=== PATIENT | female | born 1970 | race African-American/Black ===

== ENCOUNTER 2018-05-31 12:31 | Inpatient (IN) | payer OTHER, MEDICAID ==
[~2018-05-31] VITALS: Ht 142.2 cm; Wt 74.6 kg
[~2018-05-31 12:31] MED LIST: FAM20T PO; IBUP800T24 PO
[2018-05-31 13:23] LABS: Basophils # (auto) 0.1 uL; Basophils % (auto) 0.5 % (0.0-2.0); Eosinophils # (auto) 0 uL; Hematocrit 44.2 % (36.0-46.0); Hemoglobin 14.7 g/dL (12.2-16.2); Lymphocytes # (auto) 1.2 uL; Lymphocytes % (auto) 10.8 % (10.0-50.0); Mean Corpuscular Hemoglobin 29.7 pg (28.0-32.0); Mean Corpuscular Hgb Conc. 33.2 g/dL (32.0-36.0); Mean Corpuscular Volume 89.5 fL (80.0-100.0); Monocytes # (auto) 0.6 uL; Monocytes % (auto) 5.4 % (0.0-12.0); Neutrophils # (auto) 9.4 uL; Neutrophils % (auto) 83.3 % (37.0-80.0); Platelet Count (auto) 242 10^3/uL (140-450); Red Blood Cells 4.94 10^6/uL (4.0-5.20); Red Cell Distribution Width 13.7 % (11.8-14.3); White Blood Cell 11.3 10^3/uL (4.4-10.8)
[2018-05-31 14:56] LABS: Albumin 4.3 g/dL (3.4-5.0); Calcium 8.8 mg/dL (8.5-10.1); Potassium 3.8 mmol/L (3.5-5.1)
[2018-05-31 14:59] LABS: Bilirubin, Total 0.3 mg/dL (0.2-1.0); Total Protein 7.5 g/dL (6.4-8.2)
[2018-05-31 15:20] LABS: BUN/Creatinine Ratio 11.3
[2018-05-31 15:56] LABS: Urine Bacteria NONE SEEN /hpf (None Seen); Urine Blood 1+ /uL (Negative); Urine Mucus FEW (None Seen); Urine Specific Gravity 1.019 (1.001-1.035); Urine WBC 16 /hpf (0 - 5)
[2018-05-31] MEDS ORDERED: SODIUM CHLORIDE 0.9% 1,000 ML IVB ONE (16:05)
[2018-05-31] MEDS ORDERED: MORPHINE SULFATE 4 MG/ML SYR/VIAL IV ONE (16:15)
[2018-05-31] MEDS ORDERED: ONDANSETRON HCL 4 MG/2 ML VIAL IV ONE (16:15)
[2018-05-31] MEDS ORDERED: KETOROLAC TROMETH 30 MG/ML 1ML VIAL IV ONE (16:15)
[2018-05-31] MEDS ORDERED: SODIUM CHLORIDE 0.9% 1,000 ML IV ONE (19:15)
[2018-05-31] MEDS ORDERED: HYDROcodone-ACET 5/325MG TAB PO PRN (19:15)
[2018-05-31] MEDS ORDERED: MORPHINE SULFATE 4 MG/ML SYR/VIAL IV PRN ×2 (19:15)
[2018-05-31] MEDS ORDERED: NITROGLYCERIN 0.4 MG SL TAB SL PRN (19:15)
[2018-05-31] MEDS ORDERED: cefTRIAXone 1GM/50ML D5W 50 ML IV ONE (19:15)
[2018-05-31] MEDS ORDERED: ONDANSETRON HCL 4 MG/2 ML VIAL ONE (20:25)
[2018-05-31] MEDS: ONDANSETRON HCL 4 MG/2 ML VIAL IV SCH (20:29)
[2018-05-31] MEDS: TAMSULOSIN HYDROCHLORIDE 0.4 MG CAP PO SCH (20:29)
[2018-05-31 21:40] VITALS: BP 141/81
[2018-05-31 22:00] VITALS: BP 141/81
[2018-06-01] MEDS: ONDANSETRON HCL 4 MG/2 ML VIAL IV SCH ×4 (00:07→18:54)
[2018-06-01 05:24] VITALS: BP 121/68
[2018-06-01 06:31] LABS: Basophils # (auto) 0 uL; Basophils % (auto) 0.2 % (0.0-2.0); Eosinophils # (auto) 0 uL; Eosinophils % (auto) 0.1 % (0.0-7.0); Hematocrit 41.9 % (36.0-46.0); Hemoglobin 14.1 g/dL (12.2-16.2); Lymphocytes # (auto) 1.9 uL; Lymphocytes % (auto) 27.4 % (10.0-50.0); Mean Corpuscular Hemoglobin 30.1 pg (28.0-32.0); Mean Corpuscular Hgb Conc. 33.7 g/dL (32.0-36.0); Mean Corpuscular Volume 89.4 fL (80.0-100.0); Monocytes # (auto) 0.6 uL; Monocytes % (auto) 8.7 % (0.0-12.0); Neutrophils # (auto) 4.4 uL; Neutrophils % (auto) 63.6 % (37.0-80.0); Platelet Count (auto) 206 10^3/uL (140-450); Red Blood Cells 4.69 10^6/uL (4.0-5.20); Red Cell Distribution Width 13.5 % (11.8-14.3)
[2018-06-01 06:38] LABS: INR 0.99 (0.9-1.15); Partial Thromboplastin Time 23.7 sec (23.78-33.04); Prothrombin Time 10.6 sec (9.27-12.13)
[2018-06-01 06:43] LABS: BUN/Creatinine Ratio 9.5; Calcium 8.7 mg/dL (8.5-10.1)
[2018-06-01 07:38] VITALS: BP 102/66
[2018-06-01 08:00] VITALS: BP 102/66
[2018-06-01] MEDS: cefTRIAXone 1GM/50ML D5W 50 ML IV SCH (09:06)
[2018-06-01 12:30] VITALS: BP 109/63
[2018-06-01 16:35] VITALS: BP 97/70
[2018-06-01] MEDS: TAMSULOSIN HYDROCHLORIDE 0.4 MG CAP PO SCH (18:54)
[2018-06-01] MEDS: SOD CHL 0.45% 1,000 ML IV SCH (18:55)
[2018-06-01 21:55] VITALS: BP 129/69
[2018-06-02] MEDS: ONDANSETRON HCL 4 MG/2 ML VIAL IV SCH ×3 (00:25→12:00)
[2018-06-02] MEDS: SOD CHL 0.45% 1,000 ML IV SCH (04:16)
[2018-06-02 05:08] VITALS: BP 125/69
[2018-06-02 05:29] LABS: Basophils # (auto) 0 uL; Eosinophils # (auto) 0 uL; Eosinophils % (auto) 0.9 % (0.0-7.0); Hematocrit 41.2 % (36.0-46.0); Hemoglobin 13.9 g/dL (12.2-16.2); Lymphocytes # (auto) 2.2 uL; Lymphocytes % (auto) 46.8 % (10.0-50.0); Mean Corpuscular Hemoglobin 30.4 pg (28.0-32.0); Mean Corpuscular Hgb Conc. 33.8 g/dL (32.0-36.0); Monocytes # (auto) 0.4 uL; Monocytes % (auto) 8.3 % (0.0-12.0); Nucleated Red Blood Cells % 0.1 %; Platelet Count (auto) 194 10^3/uL (140-450); Red Blood Cells 4.57 10^6/uL (4.0-5.20); Red Cell Distribution Width 13.9 % (11.8-14.3); White Blood Cell 4.6 10^3/uL (4.4-10.8)
[2018-06-02 05:56] LABS: Potassium 3.7 mmol/L (3.5-5.1)
[2018-06-02 06:00] LABS: BUN/Creatinine Ratio 15.1; Calcium 8.4 mg/dL (8.5-10.1); Magnesium 2.5 mg/dL (1.6-2.6)
[2018-06-02] MEDS ORDERED: CIPROFLOXACIN 400MG/200ML 200 ML IV ONE (07:14)
[2018-06-02] MEDS ORDERED: MEPERIDINE HCL (50 MG/ML) 1 ML VIAL ONE (09:28)
[2018-06-02] MEDS ORDERED: fentaNYL CITRATE 100 MCG/2 ML VL ONE (09:28)
[2018-06-02] MEDS ORDERED: MIDAZOLAM HCL 1MG/1ML-2 ML VIAL ONE (09:28)
[2018-06-02] MEDS ORDERED: MORPHINE SULFATE 4 MG/ML SYR/VIAL IV PRN (09:45)
[2018-06-02] MEDS ORDERED: LABETALOL HCL 5 MG/ML 4ML SYRINGE IV PRN (09:45)
[2018-06-02] MEDS ORDERED: ONDANSETRON HCL 4 MG/2 ML VIAL IV ONE (09:45)
[2018-06-02] MEDS ORDERED: KETOROLAC TROMETH 30 MG/ML 1ML VIAL IV ONE (09:45)
[2018-06-02] MEDS ORDERED: hydrALAZINE HCL 20 MG/ML VL IV PRN (09:45)
[2018-06-02] MEDS ORDERED: MIDAZOLAM HCL 1MG/1ML-2 ML VIAL IV PRN (09:45)
[2018-06-02] MEDS ORDERED: ePHEDrine SULFATE 50 MG/ML AMP IV PRN (09:45)
[2018-06-02] MEDS ORDERED: HYDROmorphone HCL 2 MG/ML VL IV PRN (09:45)
[2018-06-02] MEDS ORDERED: DEXAMETHASONE SOD PHOS 10MG/1ML VIAL INJ ONE (09:52)
[2018-06-02] MEDS ORDERED: PROPOFOL 10 MG/ML 20 ML IV ONE (09:52)
[2018-06-02] MEDS ORDERED: MORPHINE SULFATE 4 MG/ML SYR/VIAL IV ONE (10:00)
[2018-06-02] MEDS ORDERED: PHENYLEPHRINE HCL 10 MG/ML VL ONE (10:12)
[2018-06-02] MEDS ORDERED: [UNRECOGNIZED DRUG - CODE] PO (11:23)
[2018-06-02] MEDS ORDERED: HYDR-4683 PO ×2 (11:23→13:46)
[2018-06-02 13:00] VITALS: BP 107/78
[2018-06-02] MEDS: cefTRIAXone 1GM/50ML D5W 50 ML IV SCH (13:03)
[2018-06-02 16:48] VITALS: BP 127/77
[2018-06-02] MEDS: TAMSULOSIN HYDROCHLORIDE 0.4 MG CAP PO SCH (18:00)
[2018-06-02 22:04] VITALS: BP_SYST 132; BP_SYST 161; BP_DIAS 72; BP_DIAS 82
[2018-06-03 05:29] VITALS: BP 123/63
[2018-06-03] MEDS: SOD CHL 0.45% 1,000 ML IV SCH ×2 (05:45→06:44)
[2018-06-03] MEDS: ONDANSETRON HCL 4 MG/2 ML VIAL IV SCH ×4 (06:00→18:00)
[2018-06-03 09:22] VITALS: BP 129/83
[2018-06-03] MEDS: cefTRIAXone 1GM/50ML D5W 50 ML IV SCH (09:28)
[2018-06-03 12:30] VITALS: BP 113/62
[2018-06-03 15:24] VITALS: BP 128/53
[2018-06-03] MEDS: TAMSULOSIN HYDROCHLORIDE 0.4 MG CAP PO SCH (18:00)
== END 2018-06-03 19:50 | disposition home health service (06) | DRG 661 ==
LOC: ER 12:31 → OVERFLOW 19:18 → TELE-CENTR 21:30 → CENTRAL 06-01 06:06
PROVIDERS: ADMIT Nurse Practitioner Acute Care; ATTEND Internal Medicine
PROC: 0T778DZ Dilation of Left Ureter with Intraluminal Device, Via Natural or Artificial Opening Endoscopic (ICD-10-PCS; principal; 2018-06-02 09:20)
PROC: 0TF48ZZ Fragmentation in Left Kidney Pelvis, Via Natural or Artificial Opening Endoscopic (ICD-10-PCS; 2018-06-02 09:20)
DX: N13.6 Pyonephrosis (principal); E66.9 Obesity, unspecified; D72.829 Elevated white blood cell count, unspecified; M54.5 Low back pain; Z68.36 Body mass index [BMI] 36.0-36.9, adult; Q63.1 Lobulated, fused and horseshoe kidney
CPT/HCPCS: 36415; 71045; 74018; 74176; 80048; 80053; 81001; 81025; 83690; 83735; 85025; 85610; 85730; 94761; 96361; 96374; 96375; G0378; J0696; J1100; J2250; J2405; J2704